=== PATIENT | female | born 1990 | race Caucasian/White ===

== ENCOUNTER 2016-11-24 20:39 | Emergency (ER) | payer OTHER ==
[~2016-11-24] VITALS: Ht 165.1 cm; Wt 72.7 kg
[~2016-11-24 20:39] MED LIST: CALCIUM CHEW; MOTRIN 600600 MG/TAB PO; NORCO 325 MG-51 TAB PO; PRENATAL1 TA1 PO
[2016-11-24 20:42] VITALS: TEMP 98
[2016-11-24] MEDS ORDERED: ULTRAM 50MG TAB50 MG PO (21:23)
[2016-11-24 21:37] LABS: BASO # 0.1 (0.0-0.2); BASO % 0.7 % (0.0-2.0); EOS # 0.1 (0.0-0.7); EOS % 1.6 % (0-4.0); GRAN # 5.3 (1.4-6.5); GRAN % 65.4 % (42.2-75.2); HEMOGLOBIN 12.1 g/dl (12.5-16.0); LYMPH # 1.9 (1.2-3.4); MEAN CELL VOLUME 86 fl (80.0-100.0); MEAN CORPUSCULAR HEMOGLOBIN 29 pg (27.0-31.0); MEAN CORPUSCULAR HGB CONC 34 g/dl (33.0-37.0); MEAN PLATELET VOLUME 10.5 fl (7.4-10.4); MONO # 0.7 (0.1-0.6); MONO % 8.9 % (1.7-9.3); PLATELET COUNT 248 K/mm3 (130-400); RED BLOOD COUNT 4.16 M/mm3 (4.10-5.30); REDCELL DISTRIBUTION WIDTH-CV 12.3 % (11.5-14.5); WHITE BLOOD COUNT 8.1 K/mm3 (4.8-10.8)
[2016-11-24 21:46] LABS: HEMATOCRIT 35.6 % (37.0-47.0)
[2016-11-24 21:48] LABS: PH 7 (5-8); SQUAMOUS EPITHELIAL 0-2 /hpf; URINE APPEARANCE Clear; URINE BACTERIA None Seen /hpf; URINE BILIRUBIN Negative (NEGATIVE); URINE BLOOD Negative (NEGATIVE); URINE COLOR Yellow; URINE GLUCOSE Negative (NEGATIVE); URINE KETONE Negative (NEGATIVE); URINE RBC 0-2 /hpf; URINE UROBILINOGEN Negative (NEGATIVE)
[2016-11-24 22:01] LABS: ERYTHROCYTE SEDIMENTATION RATE 20 mm/hr (0-20)
[2016-11-24] MEDS ORDERED: METHERGINE0.2 MG/TAB PO (22:08)
[2016-11-24 22:27] LABS: ADJUSTED CALCIUM 9.2 mg/dL (8.4-10.2); ALBUMIN 4.7 gm/dL (3.5-5.0); BILIRUBIN,TOTAL 0.3 mg/dL (0.0-1.0); C-REACTIVE PROTEIN 1.4 mg/dL (0.0-0.9); CALCIUM 9.8 mg/dL (8.4-10.2); CREATININE, serum 0.69 mg/dL (0.52-1.25); POTASSIUM 3.7 mmol/L (3.4-5.0); TOTAL PROTEIN 7.6 gm/dL (6.4-8.2)
[2016-11-24 22:42] VITALS: BP 116/62; PULSE 65
== END 2016-11-24 22:54 | disposition home or self-care (01) ==
LOC: COL.ER 20:39
PROVIDERS: Emergency Medicine
DX: R10.32 Left lower quadrant pain (principal); R10.12 Left upper quadrant pain
CPT/HCPCS: J1170; J1885; Q9967

== ENCOUNTER 2018-06-03 19:46 | Outpatient (CLI) | payer OTHER ==
[~2018-06-03] VITALS: Ht 162.6 cm; Wt 83.6 kg
[~2018-06-03 19:46] MED LIST changes: +METHERGINE0.2 MG/TAB PO; +ULTRAM 50MG TAB50 MG PO
--- NOTE | 2018-06-03 20:00 | NUR ---
PT TO UNIT WITH COMPLAINTS OF CONTRACTIONS THAT BEGAN AT APPROXIMATELY 1430 TODAY FOLLOWING INTERCOURSE. PT TO ROOM AMBULATORY, CHANGED INTO GOWN. EFM APPLIED, VS OBTAINED, SVE PERFORMED.
[2018-06-03 20:11] VITALS: BP 140/76; PULSE 86; TEMP 98.1
[2018-06-03] MEDS ORDERED: PRENATAL PO (20:18)
[2018-06-03 20:30] VITALS: BP 140/76; PULSE 86; TEMP 98.1
[2018-06-03 21:07] VITALS: BP 115/58; PULSE 69
--- NOTE | 2018-06-03 21:13 | NUR ---
MONITORING DC'D AT THIS TIME. PT MAY DC HOME AFTER 1 HOUR OF MONITORING AND REACTIVE STRIP PER DR. SARAH.
--- NOTE | 2018-06-03 21:20 | NUR ---
DISCHARGE INSTRUCTIONS REVIEWED WITH PT AND SPOUSE. QUESTIONS ENCOURAGED AND ANSWERED. PT LEFT THE UNIT AMBULATORY WITH SPOUSE FOR HOME.
== END 2018-06-03 21:20 | disposition home or self-care (01) ==
LOC: LDRO 19:46 → LDR 21:06 → LDRO 21:20
DX: O62.9 Abnormality of forces of labor, unspecified (principal); Z3A.28 28 weeks gestation of pregnancy
CPT/HCPCS: OP

== ENCOUNTER 2018-08-22 02:14 | Inpatient (IN) | payer OTHER ==
[2018-08-22] VITALS (55 sets, daily range): BP systolic 93–145; BP diastolic 51–82; PULSE 63–89; TEMP 97.6–98.8
[~2018-08-22] VITALS: Ht 162.6 cm; Wt 88.2 kg
[~2018-08-22 02:14] MED LIST changes: +PRENATAL PO
--- NOTE | 2018-08-22 02:20 | NUR ---
G4L2. 39-6. Ambulatory to LDR 3 with spouse. Clean gown on. EFM and TOCO explained and applied. Pt states she thinks her water broke around 1100 tonight, small amount of clear fluid noted. Pt was unsure if it was her water so she tried to go to sleep but contractions woke her up and increased rapidly. Pt states they are about 5-6 minutes apart. Pt states she has a small amount of bloody show. Reports good movement. SVE 4-5/80/-2, bloody show noted to exam glove. Vital signs taken. Plan of care explained to pt and who verbalize understanding. 0231: updated on pts status. See physican notification. 0248: Admit orders explained to pt and . IV started and labs obtained via IV site. LR bolus infusing as well with Pen G per orders. 0320: Pt requesting epidural at this time and states she is having a lot of pressure and there is no relief. SVE 6-7/80/-1. LR bolus infusing and Kumar JAIME notified. 0340: YENI Heath at bedside for epidural and explains procedure. Pt assisted to right lateral position due to amount of pain and unable to sit up. 0355: Test dose administered by Kumar JAIME at this time. See anesthesia orders. 0402: Pt repositioned to wedge left position. Plan of care and safety precautions explained to pt and who verbalize understanding. Call light within reach.
[2018-08-22 03:22] LABS: BASO % 0.2 % (0.0-2.0); EOS # 0.1 (0.0-0.7); EOS % 0.6 % (0-4.0); GRAN # 6.9 (1.4-6.5); GRAN % 71.7 % (42.2-75.2); LYMPH # 1.8 (1.2-3.4); MEAN CELL VOLUME 91 fl (80.0-100.0); MEAN CORPUSCULAR HEMOGLOBIN 31 pg (27.0-31.0); MEAN CORPUSCULAR HGB CONC 34 g/dl (33.0-37.0); MEAN PLATELET VOLUME 11.8 fl (7.4-10.4); MONO # 0.7 (0.1-0.6); MONO % 7.5 % (1.7-9.3); PLATELET COUNT 137 K/mm3 (130-400); RED BLOOD COUNT 3.85 M/mm3 (4.10-5.30)
[2018-08-22 03:23] LABS: HEMATOCRIT 35.1 % (37.0-47.0)
--- NOTE | 2018-08-22 04:50 | NUR ---
Recurrent late decels noted. Pt repositioned to wedge right position. Will continue to monitor.
--- NOTE | 2018-08-22 05:35 | NUR ---
Mccormick inserted at this time with small amount of yellow/clear urine return. SVE 6/80/-2, ballotable noted. Plan of care explained and pt repositioned to high fowlers position. Call light within reach.
--- NOTE | 2018-08-22 06:38 | NUR ---
Difficulty tracing FHR due to maternal position. RN at bedside adjusting monitors. FHR audible. Pt repositioned. FHR tracing.
--- NOTE | 2018-08-22 10:12 | NUR ---
SVE per this RN /-2. Pt repositioned LL with side stirrups. Variable noted with repositioning. FHR returns spontaneously to baseline.
--- NOTE | 2018-08-22 13:59 | NUR ---
Pt calling out with NV. Arteaga given. SVE per this RN /0. Pt states back pain. Repositioned to RL. Increase of pressure and early decelerations. 1415-SVE per this RN C/+1. Dr. Ribera notified. Pt prepped for delivery. 1422-Dr. Ribera on unit. Begins pushing with pt. 1427- of viable female infant attended by Dr. Ribera. Cord clamped and cut x 2. Infant dried and placed on mother's chest. Apgars 01/01/9. Care of infant to Lc Flores RN. 1430- of placenta. Pitocin bolus infusing. Fundus firm at umbilicus. Bleeding WNL. Second degree laceration repaired by Dr. Ribera. Pericare performed. Ice pack applied. Pt updated on POC. Safety reviewed. Call light within reach. Bed locked in low position. No questions or concerns at this time.
[2018-08-23 03:30] VITALS: BP 96/53; PULSE 64; TEMP 98.2
[2018-08-23 07:29] VITALS: BP 110/48; PULSE 60; TEMP 97.6
[2018-08-23] MEDS ORDERED: MOTRIN 800800 MG/TAB PO (08:15)
[2018-08-23] MEDS ORDERED: PERCOCET 325 MG1 TA2 PO (08:16)
--- NOTE | 2018-08-23 09:52 | NUR ---
Initial visit; Family thanked [employer] for offering congratulations for the of their little girl and for choosing our hospital.
== END 2018-08-23 15:43 | disposition home or self-care (01) | DRG 807 ==
LOC: LDRO 02:14 → LDR 02:37 → OB 02:37
PROVIDERS: ADMIT Obstetrics & Gynecology
PROC: 10E0XZZ Delivery of Products of Conception, External Approach (ICD-10-PCS; principal; 2018-08-22)
PROC: 0KQM0ZZ Repair Perineum Muscle, Open Approach (ICD-10-PCS; 2018-08-22)
DX: O42.02 Full-term premature rupture of membranes, onset of labor within 24 hours of rupture (principal); Z37.0 Single live birth; O34.211 Maternal care for low transverse scar from previous cesarean delivery; Z3A.39 39 weeks gestation of pregnancy; O70.1 Second degree perineal laceration during delivery; O99.824 Streptococcus B carrier state complicating childbirth
CPT/HCPCS: J2405; J2540; J2590; J7120